=== PATIENT | female | born 1950 | race Caucasian/White ===

== ENCOUNTER 2017-09-23 09:30 | Outpatient (RCR) | payer MEDICARE, SELFPAY | END 2017-10-09 | LOC: PT 09:30 | PROVIDERS: Visit Provider Internal Medicine | DX: R42 Dizziness and giddiness (principal) | CPT/HCPCS: G8987; G8988; G8989; 97112; 97162 ==

== ENCOUNTER → 2020-01-16 10:24 | Outpatient (CLI) | payer MEDICARE, SELFPAY ==
--- NOTE | 2020-01-16 10:28 | XR_ITS ---
PROCEDURE: XR DEXA AXIAL SKELETON CLINICAL HISTORY: OSTEOPAROSIS COMPARISON: No exams were available for comparison FINDINGS: Right femoral neck density is 0.391 grams/centimeters sq with a T-score of -4.1. Left femoral neck density is 0.542 grams/centimeters sq with T-score -2.8. L1-L4 density has a T-score of -1.7. IMPRESSION: Osteoporosis with high fracture risk. Treatment advised. Suggest follow-up exam in 1 year Dictated by: Anuj Sosa MD 01/16/2020 10:54 Electronically signed by Anuj Sosa MD in [place] 01/16/2020 10:54
== END ==
PROVIDERS: PCP Family Medicine; Visit Provider Family Medicine
DX: M81.0 Age-related osteoporosis without current pathological fracture (principal)
CPT/HCPCS: 77080

== ENCOUNTER 2021-12-10 16:54 | Emergency (ER) | payer MEDICARE, SELFPAY ==
[2021-12-10] VITALS (13 sets, daily range): BP systolic 131–154; BP diastolic 51–81; PULSE 86–103; RESP 12–24; TEMP 36.7–37.1; O2SAT 96–100; BMI 35.6
--- NOTE | 2021-12-10 | ECG_ITS ---
APPROVED REPORT Exam: Resting ECG HR:102 bpm ECG Measurements Heart Rate 102 AXES DE 165 P 30 QRSd 109 QRS -43 QT 325 T 21 QTc 384 Conclusion SINUS TACHYCARDIA LEFT AXIS DEVIATION [QRS AXIS < -30] PATTERN CONSISTENT WITH PULMONARY DISEASE ABNORMAL ECG UNCONFIRMED REPORT Electronically signed by : Fredy Ortega MD 12/11/2021 17:23:07
--- NOTE | 2021-12-10 17:13 | XR_ITS ---
PROCEDURE INFORMATION: Exam: XR Chest Exam date and time: 12/10/2021 5:13 PM Age: 71 years old Clinical indication: Pain; Chest pressure; Additional info: Chest pain. SOB. No HX smoking TECHNIQUE: Imaging protocol: XR of the chest. Views: 2 views. COMPARISON: CR CXR2 CHEST-AP VIEW ONLY 08/10/2017 11:54 AM FINDINGS: Lungs: Unremarkable. No consolidation. Pleural spaces: Unremarkable. No pleural effusion. No pneumothorax. Heart/Mediastinum: Unremarkable. No cardiomegaly. Bones/joints: Unremarkable. IMPRESSION: No acute findings.
[2021-12-10 17:29] LABS: Basophils # 0.1 K/mm3 (0-0.2); Basophils % 0.6 % (0.1-2.0); Eosinophils # 0.2 K/mm3 (0.0-0.4); Eosinophils % 1.3 % (0.1-12.0); Hematocrit 47.6 % (37.0-47.0); Hemoglobin 15.2 g/dL (12.2-16.2); Lymphocytes # 0.8 K/mm3 (0.7-4.5); Lymphocytes % 4.7 % (10-50); Mean Corpuscular HGB Conc 31.9 g/dL (31.8-35.4); Mean Corpuscular Hemoglobin 30.5 pg (27.0-31.2); Mean Corpuscular Volume 95.5 fl (81-99); Monocytes # 0.4 K/mm3 (0.1-1.0); Monocytes % 2.5 % (1.7-9.3); Neutrophils # 14.9 K/mm3 (1.8-7.8); Platelet Count 374 K/mm3 (142-424); Red Blood Count 4.99 M/mm3 (4.20-5.40); Red Cell Distribution Width 14.2 % (11.5-17.5); White Blood Count 16.4 K/mm3 (4.8-10.8)
[2021-12-10 17:31] LABS: MANUAL DIFFERENTIAL MANUAL DIFFERENTIAL (MANUAL DIFF)
[2021-12-10 17:36] LABS: Chloride 102 mmol/L (98-107)
[2021-12-10 17:37] LABS: Potassium 3.6 mmoL/L (3.5-5.1); Sodium 139 mmol/L (136-145)
[2021-12-10 17:39] LABS: Blood Urea Nitrogen 15 mg/dl (7-17); Creatinine Clearance Estimated 76 mL/min (50-200); Estimated Glomerular Filt Rate 83 ml/min (>60); GFR (African American) 100 ML/MIN (>60)
[2021-12-10 17:40] LABS: Anion Gap 17.6 mEq/L (5-15); Calcium 9.5 mg/dl (8.4-10.2); Carbon Dioxide 23 mmol/L (22.0-30.0); Glucose 135 mg/dl (74-100)
[2021-12-10 17:55] LABS: Troponin I < 0.01 ng/ml (0.00-0.034)
--- NOTE | 2021-12-10 18:27 | HMH.EDGENADL ---
ED Disposition Condition on Discharge: Fair - Critical Care Critical Care Time: No <Ross Franklin - Last Filed: 12/10/21 20:30> <Lexa Galarza - Last Filed: 12/10/21 22:26> Clinical Impression: Gallstone pancreatitis, Choledocholithiasis Pancreatitis, acute Qualifiers: Pancreatitis type: unspecified pancreatitis type Acute pancreatitis complication: no infection or necrosis Qualified Code(s): K85.90 - Acute pancreatitis without necrosis or infection, unspecified Disposition: Xfer Short-Term Hosp Referrals: Fredy Stovall MD [Primary Care Provider] - Forms: Transfer Record - ED Attestation: On 12/10/21, the high probability of a clinically significant, sudden or life threatening deterioration of the following system(s) required my full and direct attention, intervention and personal management. The time I documented below is in addition to time spent performing reported procedures but includes the following listed in this critical care notation. Medical Decision Making - Davin Inquiry Pt receiving controlled substance: No - Lab Data Result diagrams: 12/10/21 17:19 12/10/21 17:19 - Radiology Data #1 Image(s): Chest Image Reviewed: Yes I have reviewed radiologist's interpretation - CT Data CT Scan: Abdomen, Pelvis Time Received: 19:[address] Reviewed: Yes: I have viewed the radiologist's interpretation <Ross Franklin - Last Filed: 12/10/21 20:30> - Lab Data Lab results reviewed: Yes: I reviewed the patient's lab results. Result diagrams: 12/10/21 17:19 12/10/21 17:19 - Physician Consults Physician Consulted: case Reason -: Transfer to another facilty Additional Consult: chacorta Reason -: Transfer to another facilty <Lexa Galarza - Last Filed: 12/10/21 22:26> Vital Signs: 12/10/21 16:54 12/10/21 17:00 12/10/21 17:45 Temperature Temperature Source Pulse Rate [Left Radial] 98 H Respiratory Rate 20 12 24 Blood Pressure 147/54 H Blood Pressure [Right Arm] 154/65 H Blood Pressure Mean [Right Arm] 94 Blood Pressure Source [Right Arm] Automatic Cuff Blood Pressure Position [Right Arm] Sitting 02 Sat by Pulse Oximetry 100 Oxygen Delivery Method Room Air 12/10/21 18:15 Temperature 98.8 F Temperature Source Oral Pulse Rate [Left Radial] Respiratory Rate 23 Blood Pressure 138/51 L Blood Pressure [Right Arm] Blood Pressure Mean [Right Arm] Blood Pressure Source [Right Arm] Blood Pressure Position [Right Arm] 02 Sat by Pulse Oximetry Oxygen Delivery Method - Lab Data Lab Results 12/10/21 17:19: WBC 16.4 H, RBC 4.99, Hgb 15.2, Hct 47.6 H, MCV 95.5, MCH 30.5, MCHC 31.9, RDW 14.2, Plt Count 374, MPV 8.0, Neut % (Auto) 91.0 H, Lymph % (Auto) 4.7 L, [place] % (Auto) 2.5, Eos % (Auto) 1.3, Baso % (Auto) 0.6, Neut # (Auto) 14.9 H, Lymph # (Auto) 0.8, [place] # (Auto) 0.4, Eos # (Auto) 0.2, Baso # (Auto) 0.1, Total Counted 100, Neutrophils % (Manual) 91 H, Lymphocytes % (Manual) 4 L, Monocytes % (Manual) 4, Eosinophils % (Manual) 1, Platelet Estimate Normal 12/10/21 17:19: Sodium 139, Potassium 3.6, Chloride 102, Carbon Dioxide 23, Anion Gap 17.6 H, BUN 15, Creatinine 0.70, Estimated Creat Clear 76, Estimated GFR 83, Est GFR ( Amer) 100, Glucose 135 H, Calcium 9.5, Troponin I < 0.01 12/10/21 17:19: Total Bilirubin 3.3 H, Direct Bilirubin 2.5 H, Conjugated Bilirubin 1.3 H, Indirect Bilirubin 0.8, Unconjugated Bilirubin 0.8, AST 154 H, ALT 92 H, Alkaline Phosphatase 303 H, Total Protein 7.8, Albumin 4.6 12/10/21 17:49: Lipase 58727 H 12/10/21 20:09: Troponin I 0.02 12/10/21 20:09: Amylase 1778 H* Orders (Tests/Meds): ED MEDICATIONS Generic Name Dose Route Start Last Admin Trade Name Freq PRN Reason Stop Dose Admin Piperacillin Sod/Tazobactam 50 mls @ 100 mls/hr 12/10/21 21:15 12/10/21 21:20 Sod 3.375 gm/ Sodium Chloride IV 12/24/21 21:14 100 mls/hr Q8H HONEY Administration Sodium Chloride 8 ml 12/10/21 17:37 Sodium Chlor
[2021-12-10 18:39] LABS: Eosinophils % 1 % (0-3); Lymphocytes % 4 % (10-50); Monocytes % 4 % (2-9); Neutrophils % 91 % (42-76); Platelet Estimate Normal; Total Cells Counted 100
--- NOTE | 2021-12-10 18:39 | CT_ITS ---
PROCEDURE INFORMATION: Exam: CT Abdomen And Pelvis With Contrast Exam date and time: 12/10/2021 6:39 PM Age: 71 years old Clinical indication: Abdominal pain; Epigastric; Additional info: Epigastric pain TECHNIQUE: Imaging protocol: Computed tomography of the abdomen and pelvis with contrast. Radiation optimization: All CT scans at this facility use at least one of these dose optimization techniques: automated exposure control; mA and/or kV adjustment per patient size (includes targeted exams where dose is matched to clinical indication); or iterative reconstruction. Contrast material: ISOVUE; Contrast volume: 75 ml; Contrast route: IV; COMPARISON: CR XR CHEST 2V 12/10/2021 5:21 PM FINDINGS: Tubes, catheters and devices: None noted. Lungs: Lung bases appear clear. Heart: No significant coronary calcifications. No cardiomegaly. No significant pericardial effusion. Liver: Normal. No mass. Gallbladder and bile ducts: Cholelithiasis. Prominent intra and extrahepatic ductal dilation to the level of the ampulla. Consider further characterization with MRCP to assess for choledocholithiasis. Pancreas: Acute pancreatitis with phlegmon at the tail. No ductal dilation. Spleen: Normal. No splenomegaly. Adrenal glands: Normal. No mass. Kidneys and ureters: Normal. No hydronephrosis. Stomach and bowel: Colonic diverticulosis without diverticulitis. No obstruction. No mucosal thickening. Appendix: No evidence of appendicitis. Intraperitoneal space: Unremarkable. No free air. No significant fluid collection. Retroperitoneal space: No significant retroperitoneal inflammatory changes are noted. Vasculature: Unremarkable. No abdominal aortic aneurysm. Lymph nodes: Unremarkable. No enlarged lymph nodes. Urinary bladder: Unremarkable as visualized. Reproductive: Unremarkable as visualized. Bones/joints: Vacuum disc L5-S1. No acute fracture. Soft tissues: Unremarkable. IMPRESSION: 1. Acute pancreatitis. 2. Cholelithiasis. 3. Prominent intra and extrahepatic biliary dilatation to the level of the ampulla. 4. Consider further characterization with MRCP to assess for choledocholithiasis.
--- NOTE | 2021-12-10 19:08 | PC.NURSE ---
pt to CT, new IV started, infiltrated IV removed
[2021-12-10 19:42] LABS: Bilirubin, Conjugated 1.3 mg/dL (0.0-0.3); Bilirubin,Unconjugated 0.8 mg/dL (0.0-1.1)
[2021-12-10 19:43] LABS: Alanine Aminotransferase 92 U/L (12-78); Albumin Level 4.6 g/dl (3.5-5.0); Alkaline Phosphatase 303 U/L (38-126); Aspartate Amino Transferase 154 U/L (14-36); Bilirubin,Direct 2.5 mg/dl (0.0-0.4); Bilirubin,Indirect 0.8 mg/dL (0.0-0.9); Bilirubin,Total 3.3 mg/dl (0.2-1.3); Total Protein,Serum 7.8 g/dl (6.3-8.2)
--- NOTE | 2021-12-10 20:19 | PC.NURSE ---
Lab required more blood work as they couldn't completed all ordered labs, as well as 2nd troponin. Pt had Left arm bent and IV cath was barely in place, was able ontain labs but unable to re-advance PIV cath. Will re-attempt to place another IV.
[2021-12-10 20:38] LABS: Troponin I 0.02 ng/ml (0.00-0.034)
[2021-12-10 20:56] LABS: Amylase 1778 U/L (30-110)
--- NOTE | 2021-12-10 21:14 | PC.NURSE ---
Dr. Galarza on phone with Jacoby Young APRN, patient has been accepted to [facility]. Dr. Fairchild to consult
[2021-12-10 21:16] LABS: Lipase 17211 U/L (23-300)
[2021-12-10 21:48] LABS: Coronavirus 19, PCR Not Detected (NotDetected); Influenza A, PCR Not Detected (NotDetected); Influenza B, PCR Not Detected (NotDetected)
--- NOTE | 2021-12-10 23:46 | PC.NURSE ---
Michell speaking to [place] at this time
--- NOTE | 2021-12-10 23:57 | PC.NURSE ---
Report called to BREANA Moore at [facility] at this time.
== END 2021-12-11 00:13 | disposition short-term general hospital (02) ==
PROVIDERS: Emergency Provider Emergency Medicine; PCP Family Medicine
DX: K80.50 Calculus of bile duct without cholangitis or cholecystitis without obstruction (principal); K85.10 Biliary acute pancreatitis without necrosis or infection
CPT/HCPCS: 36415; 71046; 74177; 80048; 80076; 82150; 83690; 84484; 85007; 85025; 93005; 96365; 96375; 99284; C9803; J2405; J2543; Q9967; U0003; U0005

== ENCOUNTER → 2023-02-18 08:48 | Outpatient (CLI) | payer MEDICARE, SELFPAY ==
--- NOTE | 2023-02-18 08:59 | XR_ITS ---
FINAL REPORT TECHNIQUE: Bone densitometry calculations of the lumbar spine and left hip were obtained. CLINICAL HISTORY: osteoporosis COMPARISON: 01/16/2020 FINDINGS: Using L1-4, the bone mineral density of the spine is 0.985 g/cm2, corresponding to T-score of -0.6. Using the total left hip, the bone mineral density is 0.771 g/cm2, corresponding to a T-score of -1.9 Using the total right hip, the bone mineral density of is 0.665 g/cm2, corresponding to a T-score of -2.3. NOTE: T-score: Standard deviation compared with peak bone mass of young adult mean. *Following the recommendations of the International Society of Bone densitometry, classification of hip BMD is based on the lower of two T-scores; total hip or femoral neck. IMPRESSION: Normal bone mineral density of the lumbar spine, improved since previous. Diminished bone mineral density of the total hips consistent with osteopenia, also improved. FRAX data was not reported because patient is being treated for osteoporosis. Reviewed, Interpreted and Dictated by Yasmany Lawton MD Transcribed by Shonda Richards Authenticated and [facility]
== END ==
PROVIDERS: PCP Family Medicine; Visit Provider Family Medicine
DX: M81.0 Age-related osteoporosis without current pathological fracture (principal)
CPT/HCPCS: 77080

== ENCOUNTER 2023-05-19 08:05 | Day surgery (SDC) | payer MEDICARE, SELFPAY ==
[2023-05-15 13:42] VITALS: BMI 36.8
[2023-05-19 08:25] VITALS: BP 141/67; PULSE 80; RESP 17; TEMP 36.3; O2SAT 96
--- NOTE | 2023-05-19 08:39 | EXP.ANES.CKL ---
[facility] Disclaimer: The information contained in this section may have been updated after the patient was seen, as this information can be updated by other users. Medical History Diabetes mellitus, type 2 History of cataract Hyperlipidemia Hypertension Osteoarthritis Surgical History History of cholecystectomy Family History Other Family history of myocardial infarction Social History Smoking Status: Never smoker alcohol intake: never substance use type: denies use current occupational status: retired Travel in the last 8 weeks: None [facility] Anesthesia Checklist Patient Identification Patient Identification: Arm Band Structural Data Admitted From: Home Planned Operative Procedure/s: Colonoscopy Consent for Planned Operative Procedure(s) Verified: Yes Verified Documents: Surgical Consent and History and Physical NPO Status Verified Time NPO: 00:00 Additional verifications Anesthesia Reactions: No Airway Assessment Mallampati Score:: Class II C-Spine Mobility Assessed: Yes TMJ Mobility Assessed: Yes Dentition: Good Dentition Neurological Assessment Level of Consciousness: Awake and Alert Anesthesia Plan Anesthesia Risk discussed: Yes Anesthesia Plan: Verified ASA Class: II Anesthesia Type: MAC
[2023-05-19 08:41] LABS: POC Glucose,Bedside 122 (70-110)
--- NOTE | 2023-05-19 08:50 | HMH.SCOPE ---
Procedure: Date: 05/19/23 Patient Date of :: 1950 Procedure Performed:: Colonoscopy with polypectomy Indications:: Positive Cologuard Performing Provider:: Billy Cedeno MD Referring Provider:: Dr. Stovall Sedation:: Monitored anesthesia care Procedure:: After informed consent was obtained the patient was taken to the endoscopy suite. Sedation ensued after the patient was transferred to the left lateral decubitus position. Pulse, blood pressure, and oxygen saturation were monitored throughout the procedure. Digital rectal exam revealed no significant abnormality. The colonoscope was placed in position. The entire colon was evaluated. The colonoscope was carefully removed and the patient was transferred to recovery in stable condition. Please see findings and specimens below for detail. Findings:: Bowel preparation moderate to 4 Sigmoid diverticulosis Adjacent complex elongated ridge polyps of the distal right colon (excised and tattooed) Specimens:: Sessile elongated complex ridge polyps of the distal right colon (cold snare, cold biopsy forceps, and tattoo) Recommendations:: Follow-up pathology Short-term repeat colonoscopy secondary to size/nature of polyp and need for reevaluation of tattoo site (3-6 months) Likely barium enema in near future secondary to limited visualization and positive Cologuard Complications:: No immediate Estimated blood obtained (mL): 1 Colonoscopy Component Colonoscopy Component Was a colonoscopy performed during today's procedure?: Yes Recommended follow up colonoscopy of at least 10 years?: No If no, follow up colonoscopy recommended in ___ years?: 3-6 months Reason for not recommending >/= 10 yr follow-up interval?: Positive Cologuard; limited bowel preparation; complex sessile polyp
[2023-05-19 08:55] VITALS: O2SAT 96
[2023-05-19 09:32] VITALS: BP 110/63; PULSE 115; RESP 16; TEMP 36.2; O2SAT 98
[2023-05-19 09:42] VITALS: BP 122/68; PULSE 98; RESP 14; O2SAT 99
[2023-05-19 09:52] VITALS: BP 118/71; PULSE 96; RESP 15; O2SAT 98
[2023-05-19 10:02] VITALS: BP 121/73; PULSE 95; RESP 17; O2SAT 99
== END 2023-05-19 10:05 | disposition home or self-care (01) ==
PROVIDERS: PCP Family Medicine; Visit Provider Surgery
PROC: 0DJD8ZZ Inspection of Lower Intestinal Tract, Via Natural or Artificial Opening Endoscopic (ICD-10-PCS; principal; 2023-05-19 09:30)
DX: R19.5 Other fecal abnormalities (principal); D12.4 Benign neoplasm of descending colon; K57.30 Diverticulosis of large intestine without perforation or abscess without bleeding; E11.9 Type 2 diabetes mellitus without complications
CPT/HCPCS: 45380; 45385; 82962; 88305; J2704

== ENCOUNTER → 2023-08-24 08:40 | Outpatient (CLI) | payer MEDICARE, SELFPAY ==
--- NOTE | 2023-08-24 08:46 | FL_ITS ---
FINAL REPORT CLINICAL HISTORY: positive cologuard limited visial on colonscopy 4380.98 dap 1.55 fluoro time FINDINGS: BARIUM ENEMA HISTORY: Incomplete colonoscopy, +Cologuard. PROCEDURE: Barium contrast was instilled into the patient's colon via a rectal tube, using gravity drip. Spot and overhead films were performed. A total of 37 images were saved. FINDINGS: [employer] film is unremarkable. Mucosal detail is limited by retained stool. There are scattered diverticuli noted in the left colon. There are no constricting or obstructing lesions identified to the level of the cecum. FLUOROSCOPY TIME: 1 minute 55 seconds Radiation exposure in Total DAP: 4380.98 uGym2 IMPRESSION: No constricting or obstructing lesions of the visualized colon. Diverticulosis of the left colon. Reviewed, Interpreted and Dictated by Brigido Genao MD Transcribed by Gabbie Ford PA-C Authenticated and [facility]
== END ==
PROVIDERS: PCP Family Medicine; Visit Provider Surgery
DX: R19.5 Other fecal abnormalities (principal)
CPT/HCPCS: 74270

== ENCOUNTER 2024-01-05 08:08 | Day surgery (SDC) | payer MEDICARE, SELFPAY ==
[2024-01-04 08:57] VITALS: BMI 35.9
--- NOTE | 2024-01-05 09:16 | P.PNANES_ITS ---
[facility] Disclaimer: The information contained in this section may have been updated after the patient was seen, as this information can be updated by other users. Medical History Choledocholithiasis Diabetes mellitus, type 2 Gallstone pancreatitis History of cataract Hyperlipidemia Hypertension Osteoarthritis Pancreatitis, acute Surgical History History of cholecystectomy Family History Other Family history of myocardial infarction Social History Smoking Status: Never smoker alcohol intake: never substance use type: denies use current occupational status: retired Travel in the last 8 weeks: None [facility] Anesthesia Checklist Patient Identification Patient Identification: Arm Band Structural Data Admitted From: Home Planned Operative Procedure/s: Colonoscopy Consent for Planned Operative Procedure(s) Verified: Yes Verified Documents: Surgical Consent and History and Physical NPO Status Verified Time NPO: 00:00 Additional verifications Anesthesia Reactions: No Airway Assessment Mallampati Score:: Class II C-Spine Mobility Assessed: Yes TMJ Mobility Assessed: Yes Dentition: Good Dentition Neurological Assessment Level of Consciousness: Awake and Alert Anesthesia Plan Anesthesia Risk discussed: Yes Anesthesia Plan: Verified ASA Class: II Anesthesia Type: MAC
[2024-01-05 09:18] VITALS: BP 148/69; PULSE 79; RESP 18; TEMP 36.2; O2SAT 98
[2024-01-05] MEDS: LACTATED RINGERS 1000ML 1,000 ML 25 ML IV (09:21)
--- NOTE | 2024-01-05 09:22 | HMH.SCOPE ---
Procedure: Date: 01/05/24 Patient Date of :: 1950 Procedure Performed:: Colonoscopy with polypectomy Indications:: History of polyps Positive Cologuard Note: Colonoscopy in May 2023 somewhat complicated by moderate to poor bowel preparation. Sigmoid diverticulosis noted. Adjacent complex elongated ridge polyps of the distal right colon were excised/tattooed. Pathology confirmed tubular adenoma. Follow-up barium enema revealed no obvious abnormality. Performing Provider:: Billy Cedeno MD Referring Provider:: . Sedation:: Monitored anesthesia care Procedure:: After informed consent was obtained the patient was taken to the endoscopy suite. Sedation ensued after the patient was transferred to the left lateral decubitus position. Pulse, blood pressure, and oxygen saturation were monitored throughout the procedure. Digital rectal exam revealed no significant abnormality. The colonoscope was placed in position. The entire colon was evaluated. The colonoscope was carefully removed and the patient was transferred to recovery in stable condition. Please see findings and specimens below for detail. Findings:: Bowel preparation moderate to poor Fairly significant spasticity/lack of relaxation Mild hemorrhoidal tag/cushions Complex polyps (see specimens) Specimens:: Lobulated sessile polyp at 70 cm (cold snare)-note: This polyp was not retrieved secondary to surrounding stool burden Large sessile lobulated polyp at 40 cm (cold snare) Recommendations:: Timing of repeat colonoscopy is pending pathology will likely be around 1-2 years with extended bowel preparation. Consider gastroenterology consultation secondary to limited bowel preparation on multiple colonoscopies (possibly defer next colonoscopy to the gastroenterology service). Complications:: No immediate Estimated blood obtained (mL): 1 Colonoscopy Component Colonoscopy Component Was a colonoscopy performed during today's procedure?: Yes Recommended follow up colonoscopy of at least 10 years?: No If no, follow up colonoscopy recommended in ___ years?: (See above) Reason for not recommending >/= 10 yr follow-up interval?: (See above)
[2024-01-05 09:24] LABS: POC Glucose,Bedside 139 (70-110)
[2024-01-05 09:33] VITALS: O2SAT 98
[2024-01-05 10:12] VITALS: BP 97/59; PULSE 75; RESP 18; TEMP 36.4; O2SAT 96
[2024-01-05 10:22] VITALS: BP 117/89; PULSE 72; RESP 16; O2SAT 99
[2024-01-05 10:32] VITALS: BP 122/71; PULSE 91; RESP 16; O2SAT 98
== END 2024-01-05 10:40 | disposition home or self-care (01) ==
PROVIDERS: PCP Family Medicine; Visit Provider Surgery
PROC: 0DJD8ZZ Inspection of Lower Intestinal Tract, Via Natural or Artificial Opening Endoscopic (ICD-10-PCS; CPT 45385; principal; 2024-01-05 09:30)
DX: R19.5 Other fecal abnormalities (principal); Z86.010 Personal history of colon polyps; K64.8 Other hemorrhoids; K64.4 Residual hemorrhoidal skin tags; D12.5 Benign neoplasm of sigmoid colon; E11.9 Type 2 diabetes mellitus without complications
CPT/HCPCS: 45385; 82962

== ENCOUNTER 2024-10-09 07:00 | Emergency (ER) | payer MEDICARE, SELFPAY ==
[2024-10-09] VITALS (8 sets, daily range): BP systolic 133–167; BP diastolic 71–94; PULSE 78–110; RESP 12–20; TEMP 36.8–36.9; O2SAT 94–99; BMI 36.0
--- NOTE | 2024-10-09 07:09 | ECG_ITS ---
APPROVED REPORT Exam: Resting ECG HR:111 bpm ECG Measurements Heart Rate 111 AXES NV 200 P 34 QRSd 101 QRS -42 QT 333 T -5 QTc 399 Conclusion SINUS TACHYCARDIA LEFT AXIS DEVIATION [QRS AXIS < -30] POSSIBLE ANTERIOR MYOCARDIAL INFARCTION , PROBABLY OLD [30 ms Q WAVE IN V3/V4, OR R < 0.2 mV IN V4] ABNORMAL ECG UNCONFIRMED REPORT Electronically signed by : Jared Conteh, 10/09/2024 15:26:23
--- NOTE | 2024-10-09 07:10 | PC.NURSE ---
FS 231 at 0710.
--- NOTE | 2024-10-09 07:30 | CT_ITS ---
PROCEDURE INFORMATION: Exam: CTA Head With Contrast, Arteriography Exam date and time: 10/09/2024 7:57 AM Age: 74 years old Clinical indication: Other: Dizziness/vertigo TECHNIQUE: Imaging protocol: Computed tomographic angiography of the head with contrast. Exam focused on the arteries. 3D rendering (Not supervised by radiologist): MIP and/or 3D reconstructed images were created by the technologist. Radiation optimization: All CT scans at this facility use at least one of these dose optimization techniques: automated exposure control; mA and/or kV adjustment per patient size (includes targeted exams where dose is matched to clinical indication); or iterative reconstruction. Contrast material: ISOVUE 370; Contrast volume: 80 ml; Contrast route: INTRAVENOUS (IV); COMPARISON: CT ANGIO HEAD 10/09/2024 7:57 AM FINDINGS: ANTERIOR CIRCULATION: Right internal carotid artery: Intracranial segment is patent with no significant stenosis. No aneurysm. Right middle cerebral artery: No occlusion or significant stenosis. No aneurysm. Right anterior cerebral artery: The A1 segment of the right anterior cerebral artery is the dominant supply of the anterior cerebral circulation. Left internal carotid artery: Intracranial segment is patent with no significant stenosis. No aneurysm. Left middle cerebral artery: No occlusion or significant stenosis. No aneurysm. Left anterior cerebral artery: No occlusion or significant stenosis. No aneurysm. POSTERIOR CIRCULATION: Right vertebral artery: No occlusion or significant stenosis. No aneurysm. Left vertebral artery: No occlusion or significant stenosis. No aneurysm. Basilar artery: No occlusion or significant stenosis. No aneurysm. Right posterior cerebral artery: No occlusion or significant stenosis. No aneurysm. Left posterior cerebral artery: There is origin of the left posterior cerebral artery. Brain: There is no evidence of intracranial large vessel stenosis or occlusion. Cerebral ventricles: No ventriculomegaly. Bones/joints: Unremarkable. No acute fracture. Soft tissues: Unremarkable. Other findings: The vasculature demonstrates diffuse moderate atherosclerotic calcification. IMPRESSION: 1. There is origin of the left posterior cerebral artery. 2. The A1 segment of the right anterior cerebral artery is the dominant supply of the anterior cerebral circulation. 3. There is no evidence of intracranial large vessel stenosis or occlusion.
--- NOTE | 2024-10-09 07:30 | CT_ITS ---
PROCEDURE INFORMATION: Exam: CT Head Without Contrast Exam date and time: 10/09/2024 7:54 AM Age: 74 years old Clinical indication: Dizziness; Additional info: Dizziness/vertigo TECHNIQUE: Imaging protocol: Computed tomography of the head without contrast. Radiation optimization: All CT scans at this facility use at least one of these dose optimization techniques: automated exposure control; mA and/or kV adjustment per patient size (includes targeted exams where dose is matched to clinical indication); or iterative reconstruction. COMPARISON: No relevant prior studies available. FINDINGS: Brain: Normal. No hemorrhage. Unremarkable white matter. No mass effect. Cerebral ventricles: No ventriculomegaly. Pituitary gland and sella: There is a normal empty pituitary sella. Paranasal sinuses: Mucosal thickening is seen in the maxillary sinuses more extensive on the left with a tiny fluid level. No other sinus pathology is identified. Mastoid air cells: Visualized mastoid air cells are well aerated. Bones: Benign hyperostosis frontalis is present. Soft tissues: Unremarkable. IMPRESSION: 1. Mucosal thickening is seen in the maxillary sinuses more extensive on the left with a tiny fluid level. No other sinus pathology is identified. 2. No acute intracranial process is identified.
--- NOTE | 2024-10-09 07:30 | CT_ITS ---
PROCEDURE INFORMATION: Exam: CTA Neck With Contrast Exam date and time: 10/09/2024 7:57 AM Age: 74 years old Clinical indication: Other: Dizziness/vertigo TECHNIQUE: Imaging protocol: Computed tomographic angiography of the neck with contrast. Exam focused on the cervical segments of the vasculature. 3D rendering (Not supervised by radiologist): MIP and/or 3D reconstructed images were created by the technologist. Radiation optimization: All CT scans at this facility use at least one of these dose optimization techniques: automated exposure control; mA and/or kV adjustment per patient size (includes targeted exams where dose is matched to clinical indication); or iterative reconstruction. Contrast material: ISOVUE 370; Contrast volume: 80 ml; Contrast route: INTRAVENOUS (IV); COMPARISON: CT ANGIO HEAD 10/09/2024 7:57 AM FINDINGS: Right common carotid artery: No stenosis. No dissection or occlusion. Right internal carotid artery: There is mild calcification of the right internal carotid origin with less than 50% compromise of the lumen. Right external carotid artery: No occlusion or stenosis of the origin. Left common carotid artery: No stenosis. No dissection or occlusion. Left internal carotid artery: There is mild calcification of the left internal carotid origin with less than 50% compromise of the lumen. Left external carotid artery: No occlusion or stenosis of the origin. Right vertebral artery: No stenosis. No dissection or occlusion. Left vertebral artery: No stenosis. No dissection or occlusion. Thyroid: The thyroid appears normal. Lymph nodes: There are numerous prominent but non-pathologic lymph nodes in the neck. There are no nodes of pathologic dimensions. Soft tissues: Normal. No significant soft tissue swelling. Bones/joints: The spine demonstrates moderate degenerative changes at multiple levels. Lungs: 5 mm calcified granuloma is noted on image 3:2. The visualized portions of the lung apices are otherwise normal. Heart: There is calcification of the mitral valve annulus. Coronary arteries: There is moderate atherosclerotic calcification of the coronary arteries. IMPRESSION: 1. There is mild calcification of the right internal carotid origin with less than 50% compromise of the lumen. 2. There is mild calcification of the left internal carotid origin with less than 50% compromise of the lumen. 3. There are codominant vertebral arteries with no stenosis or dissection. REFERENCES: NASCET CRITERIA. The degree of stenosis in the cervical segment of the internal carotid artery is based on NASCET criteria. Normal is no stenosis. Mild is less than 50% stenosis. Moderate is 50-69% stenosis. Severe is 70% to 99% stenosis. Total occlusion is no detectable patent lumen.
--- NOTE | 2024-10-09 07:31 | XR_ITS ---
PROCEDURE INFORMATION: Exam: XR Chest Exam date and time: 10/09/2024 7:34 AM Age: 74 years old Clinical indication: Dyspnea TECHNIQUE: Imaging protocol: Radiologic exam of the chest. Views: 1 view. COMPARISON: CR XR CHEST 2V 12/10/2021 5:21 PM FINDINGS: Limitations: Multiple EKG leads are superimposed on the chest. Lungs: Unremarkable. No consolidation. Pleural spaces: Unremarkable. No pleural effusion. No pneumothorax. Heart/Mediastinum: Unremarkable. No cardiomegaly. Diaphragm: Eventration of the right diaphragm is again noted. Bones/joints: A right convex spinal curve is observed. IMPRESSION: No evidence of an acute chest abnormality.
--- NOTE | 2024-10-09 07:33 | ED_ITS ---
Discharge Plan Disposition Patient Disposition: Home, Self-Care Prescriptions Prescriptions: New meclizine 25 mg tablet 25 mg PO TID PRN (Reason: dizziness) Qty: 20 0RF ondansetron 4 mg tablet,disintegrating 4 mg PO Q6H PRN (Reason: nausea and vomiting) 5 Days Qty: 20 0RF No Action metformin 1,000 mg tablet 1,000 mg PO BID 30 Days Patient Comments: aspirin [Children's Aspirin] 81 mg tablet,chewable 81 mg PO DAILY lisinopril 10 mg tablet 10 mg PO pravastatin 80 mg tablet 80 mg PO glucosamine-chondroitin [Osteo Bi-Flex] 250-200 mg Tablet 2 tab PO DAILY Rx Instructions: give after food/meal calcium citrate 200 mg (950 mg) Tablet 200 mg PO DAILY Referrals Follow up/Referrals: Fredy Stovall MD [Primary Care Provider] - See instructions Activity Restrictions/Add. Instructions Additional Instructions/Restrictions: No acute abnormality noted on your CT scans and your symptoms today are consistent with benign paroxysmal positional vertigo as discussed. I recommend you continue to try vestibular rehab as well as the Edilma maneuver at home. You may return with any significant worsening of your symptoms you may continue to take meclizine as needed for dizziness as well as Zofran if you have significant nausea associated with this. Clinical Impressions Clinical Impression: Nausea, Benign paroxysmal positional vertigo Print Language Print Language: [place] Discharge ED Provider: Vicky Conteh General Adult HPI General Chief complaint: Dizziness Stated complaint: dizziness, vomiting Time Seen by Provider: 10/09/24 07:13 Mode of Arrival: Wheelchair Source of Information: Patient Limitations: No Limitations Description of Symptoms (Recalled from ER Triage Doc. by RN): pt has been dizzy since 0130 this morning, pt states it feels like the room is spinning and she has had labrynthitis in the past, pt has had a cough and cold all week but states it was getting better, fbs upon triage is 231. pt denies any other neuro s/s History of Present Illness HPI narrative: Patient is a 74-year-old largely healthy presents today with sudden dizziness around 1 AM. She states that she has been croupy all week with a cough and congestion. However she states that around 1 this morning she woke up and felt like the room was spinning. She states she had something similar in the past that she was diagnosed with labyrinth-itis. She denies any unilateral ear/hearing loss. She denies any ear pain. Denies any other neurologic symptoms at the moment including changes in coordination vision numbness or weakness. She states that her current symptoms are more lightheadedness. Not a rotary sensation. Related Data Home Medications ?Medication ?Instructions ?Recorded ?Confirmed aspirin 81 mg chewable tablet 81 mg PO DAILY Heart Disease 10/29/17 01/13/24 (Children's Aspirin) metformin 1,000 mg tablet 1,000 mg PO BID Diabetes 30 days 10/29/17 01/13/24 glucosamine-chondroitin 250 mg-200 2 tab PO DAILY Bone Loss 05/15/23 01/13/24 mg tablet (Osteo Bi-Flex) calcium citrate 200 mg PO DAILY 01/04/24 01/13/24 lisinopril 10 mg tablet 10 mg PO 01/13/24 01/13/24 pravastatin 80 mg tablet 80 mg PO 01/13/24 01/13/24 Previous Rx's ?Medication ?Instructions ?Recorded meclizine 25 mg tablet 25 mg PO TID PRN dizziness #20 tabs 10/09/24 ondansetron 4 mg disintegrating 4 mg PO Q6H PRN nausea and 10/09/24 tablet vomiting 5 days #20 tabs Allergies Allergy/AdvReac Type Severity Reaction Status Date / Time No Known Allergies Allergy Verified 01/13/24 13:46 [facility] Disclaimer: The information contained in this section may have been updated after the patient was seen, as this information can be updated by other users. Medical History (Updated 10/09/24 @ 10:30 by Vicky Conteh MD) Osteoarthritis Diabetes mellitus, type 2 History of cataract Hyperlipidemia Hypertension Pancreatitis, acute Choledocholithiasis Gallstone pancreatitis Surgical History (Updated 01/13/24 @ 13:47 by AUSTYN Burgess) History of colonoscopy History of cholecystectomy Family History Other Family history of myocardial infarction Social History Smoking Status: Never smoker alcohol intake: never substance use type: denies use current occupational status: retired Travel in the last 8 weeks: None Have you lived/traveled outside [place] in past 30 days?: No Contact w/someone who lives/traveled outside [place] past 30 days?: No Exposure to someone with infectious disease in past 14 days?: No Do you have a fever (greater than 100.4 F or 38 C)?: No Have you tested positive for COVID-19: No Exposed to someone with COVID-19 in past 14 days?: No Do you have a sore throat?: No Do you have a cough?: No Do you have any weakness?: No Do you have any diarrhea?: No Are you experiencing any unusual bleeding?: No Do you have any muscle aches/pain?: No Do you have any abdominal pain?: No Are you experiencing loss of taste or smell?: No Other Medical History Have you received the Flu Vaccine for this season: Yes Have you received the Pneumonia Vaccine: Yes ROS Obtained: Yes All systems reviewed & no additional complaints except as documented Physical Exam General General appearance: alert Eye Eye exam: Present nystagmus (Horizontal) Respiratory Respiratory exam: Present normal lung sounds bilaterally and respiratory distress Cardiovascular Cardiovascular exam: Present normal rhythm and tachycardia Neurological Exam Neurological exam: Present alert, oriented X3, CN II-XII intact, normal gait and other (Normal finger-nose bilaterally rapid alternating movements bilaterally and [id number] bilaterally); Absent motor sensory deficit Medical Decision Making Medical Records Screening: Per USPSTF and CDC recommendations, given the prevalence of disease in our region, it is our hospital?s policy to screen for HIV and viral Hepatitis for all patients aged 18 and over and those with ongoing risk factors. Davin Inquiry Pt receiving controlled substance: No Vital Signs: 10/09/24 07:01 10/09/24 07:30 10/09/24 08:30 Temperature 98.3 F Temperature Source Oral Pulse Rate 83 78 Pulse Rate [Left Radial] 110 H Respiratory Rate 20 12 14 Blood Pressure 157/74 H 142/71 H Blood Pressure [Right Arm] 167/94 H Blood Pressure Mean [Right Arm] 118 02 Sat by Pulse Oximetry 98 94 L 96 Oxygen Delivery Method Room Air Room Air Room Air 10/09/24 08:48 10/09/24 09:00 10/09/24 09:30 Temperature Temperature Source Pulse Rate 79 79 80 Pulse Rate [Left Radial] Respiratory Rate 17 17 15 Blood Pressure 146/72 H 146/71 H 147/76 H Blood Pressure [Right Arm] Blood Pressure Mean [Right Arm] 02 Sat by Pulse Oximetry 99 98 98 Oxygen Delivery Method Room Air Room Air 10/09/24 10:00 Temperature Temperature Source Pulse Rate 78 Pulse Rate [Left Radial] Respiratory Rate 14 Blood Pressure 133/76 Blood Pressure [Right Arm] Blood Pressure Mean [Right Arm] 02 Sat by Pulse Oximetry 97 Oxygen Delivery Method Lab Data Lab results reviewed: Yes I reviewed the patient's lab results. Lab Results 10/09/24 07:10: WBC 6.9, RBC 4.29, Hgb 12.6, Hct 37.9, MCV 88.3, MCH 29.4, MCHC 33.2, RDW 13.5, Plt Count 262, MPV 9.2, Neut % (Auto) 74.9, Lymph % (Auto) 17.3, [place] % (Auto) 6.1, Eos % (Auto) 0.4, Baso % (Auto) 0.6, Neut # (Auto) 5.1, Lymph # (Auto) 1.2, [place] # (Auto) 0.4, Eos # (Auto) 0.0, Baso # (Auto) 0.0, Sodium 132 L, Potassium 4.5, Chloride 98, Carbon Dioxide 27, Anion Gap 11.5, BUN 16, Creatinine 0.70, Estimated Creat Clear 76, Estimated GFR 82, Est GFR ( Amer) 100, Glucose 229 H, Calcium 10.0, Total Bilirubin 0.7, AST 28, ALT 22, Alkaline Phosphatase 73, Troponin I < 0.01, Total Protein 7.2, Albumin 4.2, Globulin 3.0, Albumin/Globulin Ratio 1.4 10/09/24 07:43: SARS-CoV-2 (PCR) Not detected, Influenza A Untype (PCR) Not detected, Influenza Type B (PCR) Not detected 10/09/24 07:10 10/09/24 07:10 Orders (Tests/Meds): ED MEDICATIONS Discontinued Medications Generic Name Dose Route Start Last Admin Trade Name Freq PRN Reason Stop Dose Admin Sodium Chloride 500 mls @ 999 mls/hr 10/09/24 07:30 10/09/24 07:39 Sod Chlor 0.9% 1000ml Bag IV 10/09/24 08:00 999 mls/hr .Q31M ONE Administration Iopamidol 80 ml 10/09/24 08:09 10/09/24 08:10 Iopamidol-370 (76%);100ml Bottle IV 10/09/24 08:10 80 ml ONCE ONE Administration Ondansetron HCl 4 mg 10/09/24 07:38 10/09/24 07:39 Ondansetron 4mg/2ml Vial IV 10/09/24 07:39 4 mg ONCE ONE Administration Sodium Chloride 10 ml 10/09/24 08:09 10/09/24 08:10 Sodium Chloride 0.9% 10ml Syr (Rad Only) IV 10/09/24 08:10 10 ml ONCE ONE Administration Sodium Chloride 50 ml 10/09/24 08:09 10/09/24 08:09 0.9 % Sodium Chloride 50 Ml Vial IV 10/09/24 08:10 50 ml ONCE ONE Administration ORDERS Category Date Time Status CT angio head Stat Cat Scan 10/09/24 07:[address] angio neck Stat Cat Scan 10/09/24 07:[address] head/brain wo con Stat Cat Scan 10/09/24 07:30 Completed CXR --portable [XR chest portable] Stat Exams 10/09/24 07:31 Completed CBC w/Auto Diff [Complete Blood Count Auto Diff] Stat Lab 10/09/24 07:10 Completed CMP [Comprehensive Metabolic Panel] Stat Lab 10/09/24 07:10 Completed Rapid PCR Covid and Flu A/B Stat Lab 10/09/24 07:43 Completed Trop I [Troponin I] Stat Lab 10/09/24 07:10 Completed Troponin I Q3H Lab 10/09/24 10:45 Ordered Troponin I Q3H Lab 10/09/24 13:45 Ordered ECG Data Tracing #1: I reviewed this ECG and interpreted as documented below: Ventricular rate of 111 sinus tachycardia there is left axis deviation no acute ischemic changes noted no significant conduction abnormalities Medical Decision Narrative: 74-year-old with above history and physical largely normal neurologic exam particular posterior circulation rapid altering movements finger-nose [id number] all normal. While it is unlikely she has posterior fossa/circulation abnormalities this remains on the differential for the 74-year-old. Initially I felt that this was most likely benign paroxysmal positional vertigo and attempted the Edilma maneuver without any success however she states further that her symptoms right now more lightheadedness not a rotary sensation with movement although she did have a description of that around 1 AM today. IV fluids and Zofran have been administered will get a CT scan of her head and CT angio of her head neck to evaluate for intracranial or vascular pathology. It is possible that this is viral related neuronitis but she does not seem to have classic symptoms of vestibular neuritis or labyrinth nidus either. Will reassess shortly. Reassessment 1031 serial neurologic exams normal patient feeling somewhat better particularly when she sits still no evidence of any ongoing neurologic emergency her symptoms are again consistent with BPPV after CT scans were performed and I personally interpreted them and also reviewed radiology images which showed no acute abnormality specifically no posterior fossa or posterior circulation abnormality. Her neurologic exam is normal and I do not think that she needs an MRI to work this up further. She has been given a new prescription of meclizine and Zofran advised to continue to attempt the Edilma maneuver and told her this is likely to be self-limiting. Patient was discharged in improved and stable condition. Critical Care Critical Care Time Critical Care Time: No
[2024-10-09 07:37] LABS: Albumin Level 4.2 g/dl (3.5-5.0); Basophils % 0.6 % (0.1-2.0); Chloride 98 mmol/L (98-107); Eosinophils % 0.4 % (0.1-12.0); Hematocrit 37.9 % (37.0-47.0); Hemoglobin 12.6 g/dL (12.2-16.2); Lymphocytes # 1.2 K/mm3 (0.7-4.5); Lymphocytes % 17.3 % (10-50); Mean Corpuscular HGB Conc 33.2 g/dL (31.8-35.4); Mean Corpuscular Hemoglobin 29.4 pg (27.0-31.2); Mean Corpuscular Volume 88.3 fl (81-99); Mean Platelet Volume 9.2 fl (7.4-10.4); Monocytes # 0.4 K/mm3 (0.1-1.0); Monocytes % 6.1 % (1.7-9.3); Neutrophils # 5.1 K/mm3 (1.8-7.8); Neutrophils % 74.9 % (37.0-80.0); Platelet Count 262 K/mm3 (142-424); Red Blood Count 4.29 M/mm3 (4.20-5.40); Red Cell Distribution Width 13.5 % (11.5-17.5); White Blood Count 6.9 K/mm3 (4.8-10.8)
[2024-10-09 07:38] LABS: Potassium 4.5 mmoL/L (3.5-5.1); Sodium 132 mmol/L (136-145)
[2024-10-09] MEDS: 0.9 % SODIUM CHLORIDE 1000ML 500 ML 999 ML IV (07:39)
[2024-10-09] MEDS: ONDANSETRON 4MG/2ML VIAL 4 MG IV (07:39)
[2024-10-09 07:40] LABS: Alanine Aminotransferase 22 U/L (12-78); Anion Gap 11.5 mEq/L (5-15); Aspartate Amino Transferase 28 U/L (14-36); Blood Urea Nitrogen 16 mg/dl (7-17); Carbon Dioxide 27 mmol/L (22.0-30.0); Creatinine Clearance Estimated 76 mL/min (50-200); Estimated Glomerular Filt Rate 82 ml/min (>60); GFR (African American) 100 ML/MIN (>60)
[2024-10-09 07:41] LABS: Albumin/Globulin Ratio 1.4 (1.1-1.8); Alkaline Phosphatase 73 U/L (38-126); Bilirubin,Total 0.7 mg/dl (0.2-1.3); Glucose 229 mg/dl (74-100); Total Protein,Serum 7.2 g/dl (6.3-8.2)
--- NOTE | 2024-10-09 07:46 | PC.NURSE ---
Patient is currently out of room going to CT
[2024-10-09 07:49] LABS: Coronavirus 19, PCR Not Detected (NotDetected); Influenza A, PCR Not Detected (NotDetected); Influenza B, PCR Not Detected (NotDetected)
[2024-10-09 07:53] LABS: Troponin I < 0.01 ng/ml (0.00-0.034)
--- NOTE | 2024-10-09 08:03 | PC.NURSE ---
Patient is back in the room from CT.
--- NOTE | 2024-10-09 08:04 | PC.NURSE ---
Patient back from radiology
[2024-10-09] MEDS: 0.9 % SODIUM CHLORIDE 50 ML VIAL IV (08:09)
[2024-10-09] MEDS: SODIUM CHLORIDE 0.9% 10ML SYR (RAD ONLY) 10 ML IV (08:10)
[2024-10-09] MEDS: IOPAMIDOL-370 (76%);100ML BOTTLE 80 ML IV (08:10)
--- NOTE | 2024-10-09 09:08 | PC.NURSE ---
Dr. Conteh at bedside
== END 2024-10-09 10:36 | disposition home or self-care (01) ==
PROVIDERS: Emergency Provider Student in an Organized Health Care Education/Training Program; PCP Family Medicine
DX: H81.10 Benign paroxysmal vertigo, unspecified ear (principal); R05.9 Cough, unspecified; R09.81 Nasal congestion; R11.0 Nausea
CPT/HCPCS: 70450; 70496; 70498; 71045; 80053; 84484; 85025; 87636; 93005; 96361; 96374; 99285; J2405; J7030; Q9967